=== PATIENT | male | born 1975 | race Caucasian/White ===

== ENCOUNTER 2021-02-21 18:05 | Emergency (ER) | payer BC ==
[~2021-02-21] VITALS: Ht 182.9 cm; Wt 135.0 kg
[2021-02-21] MEDS ORDERED: AMOXICILLIN500 MG PO (19:01)
[2021-02-21] MEDS ORDERED: FLECAINIDE50 MG PO (19:02)
[2021-02-21] MEDS ORDERED: ASPIRIN81 MG PO (19:02)
[2021-02-21] MEDS ORDERED: DILTIAZEM60 MG PO (19:02)
[2021-02-21] MEDS ORDERED: MEDDOSEPAK PO (19:03)
[2021-02-21] MEDS ORDERED: EZALLOR SPRINKL10 MG PO (19:03)
[2021-02-21 19:38] LABS: HEMATOCRIT 48.9 % (39.0-50.0); HEMOGLOBIN 16.3 g/dl (14.0-18.0); IMMATURE GRANULOCYTES 0.2 % (0.0-5.0); MEAN CELL VOLUME 83.9 fL CALC (80.0-100.0); MEAN CORPUSCULAR HGB CONC 33.3 g/dL CAL (32.0-36.0); NEUT# 4.82 thou/uL (1.82-7.42); RED BLOOD COUNT 5.83 mill/uL (4.70-6.10); RED CELL DISTRI WIDTH 12.4 % (11.5-15.5)
[2021-02-21 19:55] LABS: ALBUMIN 4.6 g/dL (3.2-5.0); ALKALINE PHOSPHATASE 65 u/l (38-126); ANION GAP 15 (6-22 (CALC)); BILIRUBIN, TOTAL 0.8 mg/dL (0.0-1.4); BUN 15 mg/dL (9-20); BUN/CREATININE RATIO 18 (12-20 (CALC)); CARBON DIOXIDE 27 mmol/l (22-30); CHLORIDE 100 mmol/l (95-108); CREATININE 0.9 mg/dL (0.7-1.3); GFR > 60 ML/MIN (>=60 (CALC)); GFR FOR AFR.AMER. > 60 ML/MIN (>=60 (CALC)); SGOT/AST 33 u/l (17-59); SODIUM 137 mmol/l (137-146); TOTAL PROTEIN 8.1 g/dL (6.3-8.2)
[2021-02-21 19:57] LABS: URINE BILIRUBIN - DIPSTICK NEGATIVE (NEGATIVE); URINE BLOOD DIPSTICK NEGATIVE (NEGATIVE); URINE COLOR YELLOW; URINE GLUCOSE - DIPSTICK NEGATIVE (NEGATIVE); URINE KETONE NEGATIVE (NEGATIVE); URINE LEUK ESTERASE NEGATIVE (NEGATIVE); URINE PH 7.5 (4.5-8.0); URINE PROTEIN - DIPSTICK NEGATIVE (NEG-TRACE); URINE SPECIFIC GRAVITY 1.025; URINE UROBILINOGEN - DIPSTICK 0.2 E.U./dL (0.2)
[2021-02-21 20:00] LABS: URINE NITRITE - DIPSTICK NEGATIVE (Negative)
[2021-02-21] MEDS ORDERED: MECLIZINE25 MG PO (20:51)
[2021-02-21 20:57] VITALS: BP 133/70
== END 2021-02-21 21:05 | disposition home or self-care (01) | DRG 305 ==
LOC: ED 18:05
PROVIDERS: Family Medicine
DX: I10 Essential (primary) hypertension (principal); I48.91 Unspecified atrial fibrillation; E78.5 Hyperlipidemia, unspecified